=== PATIENT | female | born 1975 | race Two or more races ===

== ENCOUNTER 2025-04-16 08:08 | Emergency (ER) | payer SELFPAY ==
[~2025-04-16] VITALS: Ht 152.4 cm; Wt 65.8 kg
[2025-04-16 08:11] VITALS: BP 131/83
[2025-04-16 09:03] LABS: PLATELET COUNT (AUTO) 264 K/uL (179-408); RED BLOOD CELL COUNT(AUTO) 4.46 MIL/uL (3.63-4.92); RED CELL DISTRIBUTION WIDTH 12.2 % (12.3-17.7); WHITE BLOOD COUNT (AUTO) 5.5 K/uL (3.8-11.8)
[2025-04-16] MEDS ORDERED: KETOROLAC TROMETHAMINE 15 MG INJ ONE (09:07)
[2025-04-16] MEDS: KETOROLAC TROMETHAMINE 15 MG INJ IM ONE (09:14)
[2025-04-16 09:27] LABS: CREATININE 0.6 mg/dL (0.6-1.3); SODIUM SERUM 139 mmol/L (136-145); UREA NITROGEN, BLOOD 15 mg/dL (7-18)
[2025-04-16] MEDS ORDERED: LIDOCAINE 5% PATCH TD ONE (09:28)
[2025-04-16] MEDS: LIDOCAINE 5% PATCH TD ONE (09:37)
[2025-04-16] MEDS ORDERED: CYCL5TAB PO (09:46)
[2025-04-16] MEDS ORDERED: METH4TAB3 PO (09:46)
[2025-04-16] MEDS ORDERED: IBUP-1955 PO (09:46)
[2025-04-16] MEDS ORDERED: LIDO30AD10 TP (09:46)
[2025-04-16 10:01] VITALS: BP 128/80; TEMP 97.7; O2SAT 96
== END 2025-04-16 10:01 | disposition home or self-care (01) ==
LOC: ER 08:08
DX: S46.812A Strain of other muscles, fascia and tendons at shoulder and upper arm level, left arm, initial encounter (principal); S29.012A Strain of muscle and tendon of back wall of thorax, initial encounter; M54.6 Pain in thoracic spine; R07.1 Chest pain on breathing; M54.12 Radiculopathy, cervical region; Z86.018 Personal history of other benign neoplasm; Z87.42 Personal history of other diseases of the female genital tract; Z87.448 Personal history of other diseases of urinary system; X58.XXXA Exposure to other specified factors, initial encounter; Y93.89 Activity, other specified; Y92.89 Other specified places as the place of occurrence of the external cause; Y99.8 Other external cause status
CPT/HCPCS: 99285; 71045; 80048; 85025; 84484; 36415; 93005; 96372; J1885; A4606; A4663